=== PATIENT | male | born 1985 | race Hispanic/Latino ===

== ENCOUNTER 2019-06-05 17:55 | Emergency (ER) | payer OTHER ==
[2019-06-05 18:41] LABS: BASOPHILS % (AUTO) 0.7 % (0.0-5.0); EOSINOPHILS % (AUTO) 1.9 % (0.0-8.0); LYMPHOCYTES % (AUTO) 25.2 % (21.0-51.0); MEAN CORPUSCULAR HEMOGLOBIN 30.7 pg (27.0-33.0); MEAN CORPUSCULAR HGB CONC 34.8 g/dL (32.0-36.0); MEAN CORPUSCULAR VOLUME 88.3 fL (79-99); MONOCYTES % (AUTO) 8.5 % (3.0-13.0); NEUTROPHILS % (AUTO) 63.7 % (40.0-77.0); PLATELET COUNT (AUTO) 266 K/uL (130-400); RED BLOOD CELL COUNT(AUTO) 5.09 MIL/uL (4.50-6.20); RED CELL DISTRIBUTION WIDTH 13.8 % (11.0-15.5); WHITE BLOOD COUNT (AUTO) 7.7 K/uL (4.8-10.8)
[2019-06-05] MEDS ORDERED: MORPHINE SULFATE 4 MG/1ML SYG ONE (18:43)
[2019-06-05] MEDS ORDERED: ONDANSETRON HCL 4 MG/2 ML VIAL ONE (18:43)
[2019-06-05] MEDS ORDERED: SODIUM CHLORIDE 0.9% 1000ML 1,000 ML IV ONE (18:43)
[2019-06-05 18:51] LABS: CREATININE 0.9 mg/dL (0.5-1.5); POTASSIUM 4.2 mmol/L (3.5-5.1)
[2019-06-05 18:52] LABS: INR 1.07 (0.85-1.15); PARTIAL THROMBOPLASTIN TIME 26.1 SEC (26.3-35.5); PROTHROMBIN TIME 11.2 SEC (9.6-11.6)
[2019-06-05 18:55] LABS: ALBUMIN 3.9 g/dL (3.5-5.0); BILIRUBIN,TOTAL 0.7 mg/dL (0.2-1.0); TOTAL PROTEIN, SERUM 7.7 g/dL (6.0-8.3)
[2019-06-05 18:58] LABS: APPEARANCE,URINE Clear (CLEAR); BILIRUBIN,URINE Negative (NEGATIVE); COLOR,URINE Yellow (YELLOW); GLUCOSE, URINE (UA) 250 mg/dL (NEGATIVE); KETONES,URINE Negative (NEGATIVE); LEUKOCYTE ESTERASE ,URINE Negative (NEGATIVE); NITRATE,URINE Negative (NEGATIVE); OCCULT BLOOD,URINE Negative (NEGATIVE); PH,URINE 5.5 (5.0-8.0); PROTEIN,URINE Negative (NEGATIVE)
== END 2019-06-05 19:10 | disposition home or self-care (01) ==
LOC: EDH 17:55
DX: R10.31 Right lower quadrant pain (principal); R63.0 Anorexia; E11.9 Type 2 diabetes mellitus without complications; Z90.49 Acquired absence of other specified parts of digestive tract
CPT/HCPCS: 36415; 76770; 80053; 81003; 83690; 85025; 85610; 85730; 96374; 96375; 99284; J2270; J2405; J7030

== ENCOUNTER 2019-12-29 07:38 | Day surgery (SDC) | payer OTHER ==
[2019-12-27 10:01] VITALS: BP 124/82
[2019-12-27 15:13] LABS: BASOPHILS % (AUTO) 0.5 % (0.0-5.0); EOSINOPHILS % (AUTO) 1.8 % (0.0-8.0); HEMATOCRIT 45.3 % (42-54); LYMPHOCYTES % (AUTO) 21.8 % (21.0-51.0); MEAN CORPUSCULAR HEMOGLOBIN 30.4 pg (27.0-33.0); MEAN CORPUSCULAR HGB CONC 34.7 g/dL (32.0-36.0); MEAN CORPUSCULAR VOLUME 87.8 fL (79-99); NEUTROPHILS % (AUTO) 70.4 % (40.0-77.0); NUCLEATED RED BLOOD CELLS 0.2 % (0.0-0.19); PLATELET COUNT (AUTO) 372 K/uL (130-400); RED BLOOD CELL COUNT(AUTO) 5.16 MIL/uL (4.50-6.20); RED CELL DISTRIBUTION WIDTH 12.8 % (11.0-15.5); WHITE BLOOD COUNT (AUTO) 8.9 K/uL (4.8-10.8)
[2019-12-27 15:19] LABS: APPEARANCE,URINE CLOUDY (CLEAR); BILIRUBIN,URINE NEGATIVE (NEGATIVE); COLOR,URINE RED (YELLOW); GLUCOSE, URINE (UA) NEGATIVE (NEGATIVE); KETONES,URINE 5 mg/dL (NEGATIVE); LEUKOCYTE ESTERASE ,URINE SMALL (NEGATIVE); NITRATE,URINE POSITIVE (NEGATIVE); OCCULT BLOOD,URINE LARGE (NEGATIVE); PROTEIN,URINE >=300 mg/dL (NEGATIVE)
[2019-12-27 15:32] LABS: BACTERIA,URINE Moderate /HPF (None Seen); RBC,URINE >100 /HPF (0-1)
[2019-12-27 15:33] LABS: MUCUS,URINE Few LPF (None Seen); SQUAMOUS EPITHELIAL CELL,UR Few /HPF (0-2)
--- NOTE | 2019-12-28 12:40 | NUR ---
LABS DR. KENT ASST ON PHONE. IN REGARDS TO [facility], PRESCRIPTION FOR [facility] WAS CALLED IN TO [facility]. PROCEED WITH PLANNED PROCEDURE.
[2019-12-29] VITALS (18 sets, daily range): BP systolic 103–126; BP diastolic 58–83
[~2019-12-29] VITALS: Ht 193 cm; Wt 153.9 kg
[~2019-12-29 07:38] MED LIST: ACET1TAB12 PO; ATOR10TA69 PO; HYOS-28 PO; LEVO500T2 PO; METF-444 PO; PIOG30TA10 PO; TAMS-1 PO
[2019-12-29] MEDS ORDERED: SODIUM CHLORIDE 0.9% 1000ML 1,000 ML IV ONE (07:52)
[2019-12-29] MEDS ORDERED: GENTAMICIN 80 MG/NS 100 ML PB 100 ML IV PRN (08:00)
--- NOTE | 2019-12-29 08:00 | NUR ---
PRE OP PATIENT ARRIVED, NO DISTRESS, MILD RASH NOTED TO POSTERIOR HEAD/NECK, MISSING TEETH X3 UPPER AND LOWER PER PT. SCD'S APPLIED. FACULTY ADMINISTRATOR VISITED WITH PATIENT.
[2019-12-29] MEDS ORDERED: IOHEXOL-350 50ML VIAL IV ONE (08:21)
[2019-12-29] MEDS: CEFTRIAXONE SODIUM 1 GM IVP ONE ×2 (09:15→11:30)
--- NOTE | 2019-12-29 09:20 | NUR ---
OUTPUT VOIDED 100CC TEA COLORED, STRONG ODOR URINE VIA URINAL
[2019-12-29] MEDS ORDERED: LIDOCAINE PF 2% 5ML ABBOJECT ONE (09:29)
[2019-12-29] MEDS ORDERED: MIDAZOLAM HCL 1 MG/ML 2ML VIAL ONE (09:29)
[2019-12-29] MEDS ORDERED: GLYCOPYRROLATE 1 MG/5 ML SYRINGE ONE ×2 (09:29→10:33)
[2019-12-29] MEDS ORDERED: ONDANSETRON HCL 4 MG/2 ML VIAL ONE (09:29)
[2019-12-29] MEDS ORDERED: DEXAMETHASONE SOD PHOSPHATE 10MG/ML 1ML VIAL ONE (09:29)
[2019-12-29] MEDS ORDERED: NEOSTIGMINE 5MG/5ML SYR IV ONE ×2 (09:30→10:33)
[2019-12-29] MEDS ORDERED: FENTANYL CITRATE PF 50 MCG/1 ML 5ML AMP IV ONE (09:30)
[2019-12-29] MEDS ORDERED: ROCURONIUM 10MG/1ML SYR 10 MG/ML ML ONE (09:30)
[2019-12-29] MEDS ORDERED: PROPOFOL 10 MG/ML 20ML VIAL IV ONE (09:30)
[2019-12-29] MEDS ORDERED: PHENYLEPHRINE HCL 10 MG/ML 1ML VIAL IV ONE (10:32)
[2019-12-29] MEDS ORDERED: FENTANYL CITRATE PF 50 MCG/1 ML 2ML VIAL ONE (10:36)
[2019-12-29] MEDS ORDERED: SODIUM CHLORIDE 0.9% 1000ML 1,000 ML IV SCH (11:15)
--- NOTE | 2019-12-29 11:20 | NUR ---
TRANSFER PATIENT TAKEN TO OR
--- NOTE | 2019-12-29 11:38 | NUR ---
post op pt arrived via stretcher, transported by jeovanny shore rn to room 9.
--- NOTE | 2019-12-29 14:35 | NUR ---
discharge pt taken out via w/c in no distress at this time. pt and sister given discharge instruction handouts.
== END 2019-12-29 14:35 | disposition home or self-care (01) ==
LOC: DAH 07:38
PROVIDERS: ATTEND Urology
DX: N20.1 Calculus of ureter (principal); E11.9 Type 2 diabetes mellitus without complications; E66.01 Morbid (severe) obesity due to excess calories; Z68.41 Body mass index [BMI] 40.0-44.9, adult; Z98.890 Other specified postprocedural states
CPT/HCPCS: 36415 ×2; 52356; 74420; 80048; 81001; 82360; 82948 ×2; 85025; 87088; A4213; A4215; A4221; A4222; A4223 ×2; A4354; A4600; A4663; C1758; C1769 ×2; C1894; C2617; J0696; J1100; J1580; J2001; J2250; J2370; J2405; J2704; J2710; J3010 ×2; J3490; J7030 ×2; Q9967

== ENCOUNTER 2020-01-09 16:47 | Emergency (ER) | payer OTHER ==
[2020-01-09 17:52] LABS: RAPID GROUP A STREP NEGATIVE (NEGATIVE)
== END 2020-01-09 18:31 | disposition home or self-care (01) ==
LOC: EDH 16:47
DX: J06.9 Acute upper respiratory infection, unspecified (principal); E11.9 Type 2 diabetes mellitus without complications; Z90.49 Acquired absence of other specified parts of digestive tract
CPT/HCPCS: 87804; 87880